=== PATIENT | male | born 1965 | race Caucasian/White ===

== ENCOUNTER → 2021-05-25 | Outpatient (CLI) | payer OTHER | LOC: ORTHO 10:37 | PROVIDERS: ATTEND Orthopaedic Surgery | DX: M17.12 Unilateral primary osteoarthritis, left knee (principal); M19.072 Primary osteoarthritis, left ankle and foot ==

== ENCOUNTER → 2022-10-23 | Outpatient (CLI) | payer BC, OTHER | LOC: ORTHO 08:55 | PROVIDERS: ATTEND Orthopaedic Surgery | DX: M17.12 Unilateral primary osteoarthritis, left knee (principal); M19.072 Primary osteoarthritis, left ankle and foot | CPT/HCPCS: 20600; 20610 ==